=== PATIENT | female | born 1935 | race Caucasian/White ===

== ENCOUNTER 2017-08-05 19:32 | Emergency (ER) | payer MEDICARE, OTHER ==
[2017-08-05 20:14] LABS: Bilirubin Negative (Negative); Blood, Urine Negative (Negative); Glucose, Urine (Dipstick) Negative (Negative); Ketone, Urine Negative (Negative); Nitrite Negative (Negative); Protein, Urine (Dipstick) Negative (Neg-Trace)
[2017-08-05 20:16] LABS: Bacteria/HPF 1+ HPF (None Seen); Hyaline Casts/LPF 4-6 HYALINE CAST LPF (0-3 Hyaline)
[2017-08-05 20:29] LABS: RBC/HPF 0-3 HPF (0-3)
[2017-08-05] MEDS ORDERED: Cephalexin 250 MG CAP ONE (21:24)
== END 2017-08-05 21:30 | disposition home or self-care (01) ==
LOC: ERS 19:32
DX: N39.0 Urinary tract infection, site not specified (principal); E03.9 Hypothyroidism, unspecified; I10 Essential (primary) hypertension; Z79.899 Other long term (current) drug therapy; Z79.82 Long term (current) use of aspirin
CPT/HCPCS: 81003; 81015; 87077; 87086; 87186; 99283

== ENCOUNTER 2017-08-13 09:36 | Emergency (ER) | payer MEDICARE, OTHER ==
[2017-08-13 10:19] LABS: Bilirubin Negative (Negative); Blood, Urine Negative (Negative); Glucose, Urine (Dipstick) Negative (Negative); Ketone, Urine Negative (Negative); Nitrite Negative (Negative); Protein, Urine (Dipstick) Negative (Neg-Trace)
[2017-08-13] MEDS ORDERED: Dicyclomine 20 MG TAB ONE (12:29)
[2017-08-13] MEDS ORDERED: Ondansetron ODT 4 MG TAB ONE (12:29)
[2017-08-13 12:41] LABS: #Eosinphils 0.1 thou/uL (0.0-0.7); #Lymphocytes 3.3 thou/uL (1.20-3.40); #Monocytes 0.8 thou/uL (0.11-0.59); #Neutrophils 4.3 thou/uL (1.40-6.50); %Basophils 0.3 % (0.0-1.0); %Eosinophils 0.8 % (0.0-10.0); %Lymphocytes 38.8 % (21.0-51.0); %Monocytes 9.3 % (0.0-10.0); Hematocrit 37.9 % (36.0-47.0); Mean Platelet Volume 8.3 fL (7.4-10.4); Red Blood Cell (RBC) Count 4.31 mill/uL (4.20-5.40); White Blood Cell (WBC) Count 8.5 thou/uL (4.8-10.8)
[2017-08-13 13:03] LABS: ALT (SGPT) 12 U/L (8-55); AST (SGOT) 18 U/L (5-34); Alkaline Phosphatase 68 U/L (40-150); Anion Gap 10 mmol/L (10-20); BUN (Urea Nitrogen) 21 mg/dL (9.8-20.1); Bilirubin, Total 0.8 mg/dL (0.2-1.2); Calc. Creatinine Clearance 0 mL/min (70-130); Calcium 8.9 mg/dL (7.8-10.44); Carbon Dioxide 29 mmol/L (23-31); Chloride 104 mmol/L (98-107); Estimated GFR-MDRD 39; Globulin 3.2 g/dL (2.4-3.5); Lipase 16 U/L (8-78)
--- NOTE | 2017-08-13 14:12 | CT ---
CT ABDOMEN AND PELVIS WITH IV CONTRAST: Date: 08/13/17 HISTORY: Diarrhea with onset of symptoms 1 day ago. Unresolved UTI symptoms. Patient has bilateral flank pain. Patient now has diffuse abdominal pain that began yesterday. COMPARISON: 08/04/16. FINDINGS: Post cholecystectomy changes are again present. There is suggestion of mild scarring involving the superior pole of each kidney. There is minimal bibasilar atelectasis. A small hiatal hernia is again present. The liver has a normal CT appearance, but the most superior aspect dome of the liver is excluded from view. The spleen, pancreas, and bilateral adrenal glands demonstrate a normal CT appearance. Urinary bladder is decompressed. There is evidence of hysterectomy. A 2.9 cm low density structure seen in the left adnexa which does demonstrate fluid attenuation may r epresent a small left ovarian cyst. The appendix is visualized and normal in caliber. Vascular calcifications are present in the abdominal aorta and iliac arteries. No dilated loops of bowel are seen. There is colonic diverticulosis. There has been no other interval change when compared to the prior e xam. IMPRESSION: 1. No acute findings in the abdomen or pelvis. 2. Small hiatal hernia. 3. Cholecystectomy and hysterectomy. 4. Small left ovarian cyst. POS: [facility]
== END 2017-08-13 14:48 | disposition home or self-care (01) ==
LOC: ERS 09:36
DX: R10.9 Unspecified abdominal pain (principal); E03.9 Hypothyroidism, unspecified; I10 Essential (primary) hypertension
CPT/HCPCS: 36415; 74177; 80053; 81003; 83690; 85025; 87086; Q0162

== ENCOUNTER 2017-08-28 12:58 | Emergency (ER) | payer MEDICARE, OTHER ==
[2017-08-28] MEDS ORDERED: Nitroglycerin 0.4 MG TAB (25 Tab Bottle) ONE (13:33)
[2017-08-28] MEDS ORDERED: Nitroglycerin 2% Ointment 1 INCH/1 GM Packet ONE (13:33)
[2017-08-28] MEDS ORDERED: Acetaminophen 500 MG TAB ONE (13:33)
[2017-08-28 13:44] LABS: #Basophils 0.1 thou/uL (0.0-0.2); #Eosinphils 0.1 thou/uL (0.0-0.7); #Lymphocytes 2.6 thou/uL (1.20-3.40); #Monocytes 0.6 thou/uL (0.11-0.59); %Basophils 1.2 % (0.0-1.0); %Eosinophils 1.9 % (0.0-10.0); %Lymphocytes 35.4 % (21.0-51.0); %Monocytes 8.4 % (0.0-10.0); Hematocrit 38.4 % (36.0-47.0); Mean Platelet Volume 8.4 fL (7.4-10.4); Red Blood Cell (RBC) Count 4.39 mill/uL (4.20-5.40); White Blood Cell (WBC) Count 7.5 thou/uL (4.8-10.8)
--- NOTE | 2017-08-28 13:51 | RAD ---
CHEST ONE VIEW: History: Dyspnea. Comparison: 05-16-15 FINDINGS: Cardiac silhouette is magnified by projection. Pulmonary vasculature is upper limits of normal and ac centuated by shallow inspiration. Mediastinum is midline. There is no lobar consolidation or evidence of pneumothorax. cat breeder leads overlie the chest. IMPRESSION: No active cardiopulmonary abnormalities are demonstrated. POS: [facility]
[2017-08-28 14:16] LABS: ALT (SGPT) 13 U/L (8-55); AST (SGOT) 20 U/L (5-34); Alkaline Phosphatase 67 U/L (40-150); Anion Gap 12 mmol/L (10-20); BUN (Urea Nitrogen) 23 mg/dL (9.8-20.1); Bilirubin, Total 0.3 mg/dL (0.2-1.2); CK (CPK) 63 U/L (29-168); Calc. Creatinine Clearance 0 mL/min (70-130); Calcium 8.6 mg/dL (7.8-10.44); Carbon Dioxide 27 mmol/L (23-31); Chloride 105 mmol/L (98-107); Estimated GFR-MDRD 40; Globulin 2.8 g/dL (2.4-3.5); Protein, Total 6.8 g/dL (6.0-8.3)
[2017-08-28 14:20] LABS: Troponin I Less than 0.010 ng/mL (< 0.028)
== END 2017-08-28 15:13 | disposition home or self-care (01) ==
LOC: ERS 12:58
DX: I16.0 Hypertensive urgency (principal); E03.9 Hypothyroidism, unspecified; I10 Essential (primary) hypertension; Z79.02 Long term (current) use of antithrombotics/antiplatelets; Z79.899 Other long term (current) drug therapy
CPT/HCPCS: 71010; 80053; 82553; 83880; 84484; 85025; 93005

== ENCOUNTER 2018-02-16 15:31 | Observation (INO) | payer MEDICARE, OTHER ==
[2018-02-16 15:55] LABS: #Eosinphils 0.2 thou/uL (0.0-0.7); #Lymphocytes 2.2 thou/uL (1.20-3.40); #Neutrophils 8.7 thou/uL (1.40-6.50); %Basophils 0.3 % (0.0-1.0); %Eosinophils 1.3 % (0.0-10.0); %Lymphocytes 18.1 % (21.0-51.0); %Monocytes 8.2 % (0.0-10.0); %Neutrophils 72.1 % (42.0-75.0); Hemoglobin 12.6 g/dL (12.0-16.0); Mean Corpuscular HGB CONC 32.3 g/dL (32.0-36.0); Mean Corpuscular Hemoglobin 26.9 pg (27.0-31.0); Mean Corpuscular Volume 83.2 fl (81.0-99.0); Mean Platelet Volume 8.4 fL (7.4-10.4); Platelet Count 219 thou/uL (130-400); RBC Distribution Width 14.8 % (11.5-14.5)
[2018-02-16 16:19] LABS: ALT (SGPT) 10 U/L (8-55); AST (SGOT) 20 U/L (5-34); Albumin 4.1 g/dL (3.4-4.8); Alkaline Phosphatase 77 U/L (40-150); Anion Gap 16 mmol/L (10-20); BUN (Urea Nitrogen) 18 mg/dL (9.8-20.1); Bilirubin, Total 0.7 mg/dL (0.2-1.2); CK (CPK) 65 U/L (29-168); Calc. Creatinine Clearance 0 mL/min (70-130); Carbon Dioxide 25 mmol/L (23-31); Chloride 101 mmol/L (98-107); Estimated GFR-MDRD 32; Globulin 3.5 g/dL (2.4-3.5); Glucose 129 mg/dL (83-110); Potassium 4.2 mmol/L (3.5-5.1); Protein, Total 7.6 g/dL (6.0-8.3); Sodium 138 mmol/L (136-145)
[2018-02-16 16:21] LABS: CKMB 1.5 ng/mL (0-6.6); Troponin I Less than 0.010 ng/mL (< 0.028)
[2018-02-16] MEDS ORDERED: Ondansetron ODT 4 MG TAB ONE ×4 (16:21→20:00)
--- NOTE | 2018-02-16 16:28 | RAD ---
FRONTAL RADIOGRAPH CHEST 02/16/18 COMPARISON: 08/28/17 HISTORY: Generalized weakness with nausea and vomiting. FINDINGS/IMPRESSION: Heart and mediastinal contours are grossly unchanged with no pneumothorax, pleural fluid, lobar conso lidation or alveolar edema. There is multilevel disc space narrowing and right lateral osteophyte for mation. IMPRESSION: No acute findings. POS: [facility]
[2018-02-16] MEDS ORDERED: ISOVUE-370 76%-LOCM 1 ML ONE (16:44)
[2018-02-16 17:17] LABS: Bilirubin Negative (Negative); Blood, Urine Negative (Negative); Clarity CLEAR (Clear); Glucose, Urine (Dipstick) Negative (Negative); Leukocyte Negative (Negative); Nitrite Negative (Negative); Protein, Urine (Dipstick) Negative (Neg-Trace); Specific Gravity, Urine 1.014 (1.002-1.036); pH, Urine 7.5 (5.0-9.0)
--- NOTE | 2018-02-16 18:26 | CT ---
CT ABDOMEN AND PELVIS 02/16/18 COMPARISON: 08/13/17. HISTORY: Weakness, nausea, vomiting and pain. TECHNIQUE: Serial axial CT imaging at 5 mm intervals from the lung bases through the pubic symphysis with IV con trast. Coronal reformatted imaging obtained. FINDINGS: Imaged lung bases are unremarkable. No free intraperitoneal air or fluid. The gallbladder is surgically absent. Liver and spleen are unremarkable. There is fatty atrophy of th e pancreas. Adrenal glands are unremarkable. Diffuse cortical thinning is seen involving bilateral ki dneys, stable. The uterus is surgically absent. There is mild sigmoid diverticulosis with no evidence for diverticul itis. No evidence for bowel inflammatory change or obstruction. There is a small to moderate sized sliding hiatal hernia, stable. There is a low density lesion in the left hemipelvis suggesting a cystic left ovarian lesion. This lesion measures 3.4 cm, enlarged since the 08/13/17 exam at which time it measur ed 2.9 cm. There is degenerative change involving facet joints of the lower lumbar spine and involving bilateral hips. No worrisome lytic or blastic bone lesion identified. IMPRESSION: 1. No evidence for free intraperitoneal air or bowel obstruction. 2. Low density lesion in the left hemipelvis suggesting a cystic left ovarian lesion, increased in size since the prior exam. Recommend followup REEL HOOKER consultation and nonemergent followup pelvic ult rasound as a neoplastic lesion within the left ovary cannot be excluded. Code T POS: [facility]
--- NOTE | 2018-02-16 18:28 | CT ---
HEAD CT WITHOUT CONTRAST 02/16/18 COMPARISON: 12/25/16 HISTORY: Generalized weakness with nausea and vomiting. TECHNIQUE: Serial axial CT imaging at 5 mm intervals from vertex through skull base without contrast. FINDINGS: Imaged paranasal sinuses/mastoid air cells are well aerated. There is no displaced calvarial fracture , intracranial hemorrhage, midline shift, or mass effect. IMPRESSION: No acute findings. POS: [facility]
[2018-02-16 22:15] VITALS: BMI 38.7
[2018-02-16] MEDS ORDERED: Ondansetron HCl/PF 4 MG/2 ML Vial IVP PRN ×2 (22:22→22:30)
[2018-02-16] MEDS ORDERED: Ondansetron ODT 4 MG TAB SL PRN (22:22)
[2018-02-16] MEDS ORDERED: Lactated Ringer's 1,000 ML IV SCH (22:22)
[2018-02-16] MEDS ORDERED: Loperamide HCl 2 MG CAP PO PRN (22:30)
[2018-02-16] MEDS ORDERED: Acetaminophen 325 MG TAB PO PRN (22:30)
[2018-02-16] MEDS ORDERED: Mag-Al 1200 mg/1200 mg/30 ML UDCUP PO PRN (22:30)
[2018-02-16] MEDS ORDERED: HYDROcodone/Acetaminophen 5/325 mg Tablet PO PRN (22:30)
[2018-02-16] MEDS ORDERED: Senokot 8.6 MG TAB PO PRN (22:30)
[2018-02-16] MEDS ORDERED: ALPRAZolam 1 MG TAB PO PRN (22:30)
[2018-02-16] MEDS ORDERED: Milk Of Magnesia 30 ML UDCUP PO PRN (22:30)
[2018-02-16] MEDS ORDERED: Ondansetron ODT 4 MG TAB PO PRN (22:30)
[2018-02-16] MEDS ORDERED: Zolpidem Tartrate 5 MG TAB PO PRN (22:30)
--- NOTE | 2018-02-17 00:12 | HP ---
PRIMARY CARE PHYSICIAN: SALLY Grant/Len De La Garza MD REASON FOR ADMISSION: Nausea, vomiting, diarrhea, weakness. HISTORY OF PRESENT ILLNESS: An 82-year-old female who has underlying history of hypertension, coronary artery disease, and hypothyroidism, who came to emergency room with complaint of generalized weakness. The patient had one time nausea and vomiting today and she had diarrhea one time at home. The patient was feeling chills and weakness for about 1 week. She had multiple falls for last 2 weeks, she was having diffuse abdominal discomfort, especially in the lower part with crampy in nature, about 8/10 in intensity. She did not have any fever. She denies any hematochezia, melena, or hematemesis. This patient reports that for last week, she was having edema in her lower extremity and that is why she was started on Lasix and today all symptoms gotten worse. REVIEW OF SYSTEMS: The following complete review of systems was negative, unless otherwise mentioned in the HPI or below: Constitutional: Weight loss or gain, ability to conduct usual activities. Skin: Rash, itching. Eyes: Double vision, pain. ENT/Mouth: Nose bleeding, neck stiffness, pain, tenderness. Cardiovascular: Palpitations, dyspnea on exertion, orthopnea. Respiratory: Shortness of breath, wheezing, cough, hemoptysis, fever or night sweats. Gastrointestinal: Poor appetite, abdominal pain, heartburn, nausea, vomiting, constipation, or diarrhea. Genitourinary: Urgency, frequency, dysuria, nocturia. Musculoskeletal: Pain, swelling. Neurologic/Psychiatric: Anxiety, depression. Allergy/Immunologic: Skin rash, bleeding tendency. PAST MEDICAL HISTORY: Hypertension, coronary artery disease, hypothyroidism, senile dementia, dyslipidemia, gastroesophageal reflux disease. PAST SURGICAL HISTORY: Cholecystectomy, back surgery, cardiac catheterization with angiography, carotid endarterectomy, hysterectomy. PAST PSYCHIATRIC HISTORY: Anxiety and depression. SOCIAL HISTORY: Patient lives at home. No history of tobacco, alcohol, or illicit drug abuse. FAMILY HISTORY: Positive for hypertension, cerebrovascular accident to mother and brother had coronary artery disease. ALLERGIES: HYDRALAZINE. CURRENT HOME MEDICATIONS: Xanax 0.25 mg p.o. at bedtime p.r.n., aspirin 81 mg p.o. daily, Plavix 75 mg p.o. daily, Nexium 40 mg p.o. daily, Prozac 20 mg p.o. daily, Lasix 20 mg p.o. daily, Imdur 60 mg p.o. daily, Synthroid 175 mcg p.o. daily, losartan 50 mg p.o. daily, Namenda 10 mg p.o. daily, Zocor 10 mg p.o. at bedtime, VESIcare 10 mg p.o. daily. EMERGENCY ROOM COURSE: Patient has received gentle IV fluid, Zofran 4 mg x2. PHYSICAL EXAMINATION: VITAL SIGNS: On arrival, blood pressure 121/78, pulse 88, respiratory rate 20, temperature 98.0, saturation 99% on room air, weight 100 kilograms. GENERAL: Patient is currently alert, awake, in no obvious acute distress. HEAD: Normocephalic, atraumatic. EYES: Pupils round, reactive to light. Extraocular muscle intact. ENT: Oropharynx within normal limits. Moist mucous membranes. No oral lesion , no pharyngeal erythema, no exudate. NECK: Supple. No JVD, no thyromegaly, no carotid bruit. LUNGS: Clear to auscultation without any rhonchi or rales. CARDIAC: S1, S2 appears regular. No murmur, no gallop, no rub. ABDOMEN: Patient does have diffuse tenderness especially in the lower part, but no peritoneal signs, no guarding, no rigidity, no rebound. BACK: Unremarkable. No CVA tenderness. EXTREMITIES: Upper extremity: Passive movement of all joints are normal. Lower extremities: No edema. Good peripheral pulsation. SKIN: No skin rash. HEMATOLOGICAL: No lymphadenopathy. PSYCHIATRIC: Normal affect. NEUROLOGIC: Nonfocal examination. SIGNIFICANT DIAGNOSTIC AND LABORATORY DATA: EKG showing normal sinus rhythm, sharp, without any acute ischemic changes. CT brain based on my review, no acute intracranial process. Chest x-ray showing no acute cardiopulmonary process. Multilevel disk space narrowing. Abdomen and pelvis CT scan showed a cystic lesion in left lower quadrant, which has slightly increased in size, most likely from ovarian origin. CBC: WBC 12.0, hemoglobin 12.6, platelet 219, 000. BMP: Sodium 138, potassium 4.2, chloride 103, carbon dioxide 25, anion gap 16, BUN 18, creatinine 1.55, glucose 129, calcium 9.0. LFT: AST 20, ALT 10 , alkaline phosphatase 77, albumin 4.1. Cardiac enzymes negative. BNP 134.3, lipase 23. Urinalysis normal. Influenza screen negative. IMPRESSION and PLAN: 1. Generalized weakness, likely related with volume depletion secondary to nausea, vomiting, diarrhea, and diuretic therapy. 2. Dehydration due to problem #1. Will hold lasix today, give gentle fluid. 3. Nausea, vomiting, diarrhea, rule out infection. 4. Abdominal pain, likely due to problem #1, suspecting viral gastroenteritis. 5. Cystic ovarian lesion on the left side. Patient will need pelvic ultrasound. 6. Elevated BNP. We will obtain echocardiography to rule out systolic and diastolic dysfunction. 7. Coronary artery disease. 8. Gastroesophageal reflux disease. 9. Anxiety and depression. 10. Hypothyroidism. 11. Senile dementia. 12. Dyslipidemia. We will resume patient's home medication. 13. Deep venous thrombosis prophylaxis not needed because we are expecting discharge in 24 hours. 14. Gastrointestinal prophylaxis, Protonix 40 mg IV daily. CODE STATUS: Patient is FULL CODE. Patient's granddaughter is surrogate decision maker. Disposition plan based on above-mentioned investigation result. She will need PT, OT, and possible rehab placement. ABDELRAHMAN
[2018-02-17 04:57] LABS: #Lymphocytes 1.2 thou/uL (1.20-3.40); #Monocytes 0.6 thou/uL (0.11-0.59); #Neutrophils 5.5 thou/uL (1.40-6.50); %Basophils 0.1 % (0.0-1.0); %Eosinophils 0.2 % (0.0-10.0); %Lymphocytes 16.3 % (21.0-51.0); %Monocytes 7.9 % (0.0-10.0); %Neutrophils 75.6 % (42.0-75.0); Hemoglobin 11.1 g/dL (12.0-16.0); Mean Corpuscular HGB CONC 32.3 g/dL (32.0-36.0); Mean Corpuscular Hemoglobin 26.9 pg (27.0-31.0); Mean Corpuscular Volume 83.1 fl (81.0-99.0); Mean Platelet Volume 8.4 fL (7.4-10.4); Platelet Count 157 thou/uL (130-400); RBC Distribution Width 14.8 % (11.5-14.5); Red Blood Cell (RBC) Count 4.14 mill/uL (4.20-5.40); White Blood Cell (WBC) Count 7.3 thou/uL (4.8-10.8)
[2018-02-17 05:07] LABS: ALT (SGPT) 9 U/L (8-55); AST (SGOT) 15 U/L (5-34); Albumin 3.5 g/dL (3.4-4.8); Alkaline Phosphatase 62 U/L (40-150); Anion Gap 11 mmol/L (10-20); BUN (Urea Nitrogen) 17 mg/dL (9.8-20.1); Bilirubin, Total 0.5 mg/dL (0.2-1.2); Calc. Creatinine Clearance 51 mL/min (70-130); Calcium 8.2 mg/dL (7.8-10.44); Carbon Dioxide 27 mmol/L (23-31); Chloride 104 mmol/L (98-107); Estimated GFR-MDRD 38; Globulin 2.8 g/dL (2.4-3.5); Glucose 111 mg/dL (83-110); Potassium 3.9 mmol/L (3.5-5.1); Protein, Total 6.3 g/dL (6.0-8.3); Sodium 138 mmol/L (136-145)
[2018-02-17] MEDS ORDERED: Levothyroxine 175 MCG TAB PO SCH (06:00)
[2018-02-17] MEDS ORDERED: Clopidogrel Bisulfate 75 MG TAB PO SCH (09:00)
[2018-02-17] MEDS ORDERED: Pantoprazole 40 MG VIAL IVP SCH (09:00)
[2018-02-17] MEDS ORDERED: TROSPIUM 20 MG TABLET PO SCH (09:00)
[2018-02-17] MEDS ORDERED: Famotidine 20 MG TAB PO SCH (09:00)
[2018-02-17] MEDS ORDERED: FLUoxetine HCl 20 MG CAP PO SCH (09:00)
[2018-02-17] MEDS ORDERED: Losartan 25 MG TAB PO SCH (09:00)
--- NOTE | 2018-02-17 10:33 | ULT ---
PELVIC ULTRASOUND: Date: 02/17/18 HISTORY: Follow-up for evaluation of a cystic lesion in the left adnexa noted on recent CT. COMPARISON: CT examination done yesterday. FINDINGS: Real-time images of the pelvis were obtained transabdominally. These confirm the presence of a 2.9 cm left ovarian cyst. The uterus and right ovary have been removed. DOPPLER EVALUATION WITH SPECTRAL ANALYSIS: Normal flow shown to the left ovary. IMPRESSION: 2.9 cm left ovarian cyst. No suspicious features of this cyst. POS: [facility]
[2018-02-17] MEDS ORDERED: Loperamide HCl 2 MG CAP PO SCH (12:00)
--- NOTE | 2018-02-17 15:49 | DIS ---
DATE OF ADMISSION: 02/16/2018 DATE OF DISCHARGE: 02/17/2018 PRIMARY CARE PROVIDER: Len De La Garza M.D. DISCHARGE DIAGNOSES: 1. Gastroenteritis. 2. Generalized weakness. 3. Acute on chronic renal insufficiency. 4. Ovarian cyst. CONDITION OF PATIENT ON THE DAY OF DISCHARGE: Stable. I assessed Ms. Velazquez on the day of discharge. She reports the diarrhea has improved. Vital signs are stable. S1 and S2 are heard, regular. Calvin gs are clear to auscultation bilaterally. DISCHARGE MEDICATIONS: In addition to her preadmission home medications as dictated by Dr. Stella chapa history and physical note from 02/16/2018, she is being discharged on Imodium p.r.n. HOSPITAL COURSE: Ms. Mtz is a pleasant 82-year-old lady who was admitted to [facility] for generalized weakness, nausea, vomiting, and diarrhea, most likely secondary to viral gastroenteritis. Clostridium difficile antigen and toxin tests were negative on stool sample. Camp ylobacter antigen assay as well as Shiga toxin test were negative as well. Rapid parasite screen was also negative for Giardia or cryptosporidium. Preliminary urine culture did not show any growth at 24 hours. The patient improved with intravenous fluids. Her leukocytosis resolved. She also had acute on [address] [place] renal insufficiency, with a creatinine of 1.55 on the day of admission. It decreased to 1.33 on the day of discharge. She had CT scan of the abdomen and pelvis at the time of admission, which did not show any evidence f or free intraperitoneal air or bowel obstruction. She had low density lesion in the left hemipelvis suggesting a cystic left ovarian lesion, increased in size since the previous exam. [facility], which showed 2.9 cm left ovarian cyst. There were no suspiciou s features of the cyst. She is advised to follow up with her primary care provider as well as with [facility] for the same. She also had a 2D echocardiogram, report is pending at the time of discharge. She is advised to foll ow up with her primary care provider for a 2D echocardiogram report. Many thanks for allowing me to participate in your patient's care. Please feel free to contact me wi th any questions or concerns. DISCHARGE DESTINATION: Home.
[2018-02-17 18:35] VITALS: BP 108/55; TEMP 98.2
[2018-02-17] MEDS ORDERED: Simvastatin 20 MG TAB PO SCH (21:00)
== END 2018-02-17 19:51 | disposition home or self-care (01) ==
LOC: ERS 15:31 → 2SW 21:00
PROVIDERS: ADMIT Internal Medicine; ATTEND Internal Medicine
DX: K52.9 Noninfective gastroenteritis and colitis, unspecified (principal); I12.9 Hypertensive chronic kidney disease with stage 1 through stage 4 chronic kidney disease, or unspecified chronic kidney disease; N18.9 Chronic kidney disease, unspecified; I25.10 Atherosclerotic heart disease of native coronary artery without angina pectoris; K21.9 Gastro-esophageal reflux disease without esophagitis; N83.202 Unspecified ovarian cyst, left side; F41.8 Other specified anxiety disorders; E03.9 Hypothyroidism, unspecified; F03.90 Unspecified dementia, unspecified severity, without behavioral disturbance, psychotic disturbance, mood disturbance, and anxiety; E78.5 Hyperlipidemia, unspecified; Z79.82 Long term (current) use of aspirin; Z79.02 Long term (current) use of antithrombotics/antiplatelets; Z79.899 Other long term (current) drug therapy
CPT/HCPCS: 51701; 70450; 71045; 74177; 76856; 80053 ×2; 81003; 82550; 82553; 83690; 83880; 84484; 85025 ×2; 87045; 87046; 87086; 87324; 87328; 87329; 87449 ×2; 87804 ×2; 87899 ×2; 93005; 93306; 94760; 96361 ×3; 96374; 97116; 97139 ×2; 99285; G0378; G8978; G8979; G8980; 36415; 87081; 96360; A4353; C9113; Q0162

== ENCOUNTER 2018-03-07 13:51 | Emergency (ER) | payer MEDICARE, OTHER ==
[2018-03-07 14:25] LABS: #Lymphocytes 1.6 thou/uL (1.20-3.40); #Monocytes 2.4 thou/uL (0.11-0.59); #Neutrophils 14.2 thou/uL (1.40-6.50); %Basophils 0.1 % (0.0-1.0); %Eosinophils 0.1 % (0.0-10.0); %Lymphocytes 8.7 % (21.0-51.0); %Monocytes 13.1 % (0.0-10.0); %Neutrophils 77.9 % (42.0-75.0); Hemoglobin 11.5 g/dL (12.0-16.0); Mean Corpuscular HGB CONC 31.4 g/dL (32.0-36.0); Mean Corpuscular Hemoglobin 26.6 pg (27.0-31.0); Mean Corpuscular Volume 84.6 fL (78.0-98.0); Mean Platelet Volume 8.8 fL (7.4-10.4); Platelet Count 170 thou/uL (130-400); RBC Distribution Width 14.4 % (11.5-14.5); Red Blood Cell (RBC) Count 4.35 mill/uL (4.20-5.40); White Blood Cell (WBC) Count 18.2 thou/uL (4.8-10.8)
[2018-03-07 14:43] LABS: Bilirubin Negative (Negative); Blood, Urine Small (Negative); Clarity TURBID (Clear); Glucose, Urine (Dipstick) Negative (Negative); Leukocyte Large (Negative); Nitrite Positive (Negative); Protein, Urine (Dipstick) 100 mg/dL (Neg-Trace); Specific Gravity, Urine 1.014 (1.002-1.036)
[2018-03-07 14:45] LABS: Bacteria/HPF 4+ HPF (None Seen); Hyaline Casts/LPF 4-6 HYALINE CAST LPF (0-3 Hyaline); Pathc Cast-AUWi Flag 1.59 (0-2.49); Squamous Epithelial 0-3 HPF (0-3)
[2018-03-07 14:46] LABS: ALT (SGPT) 11 U/L (8-55); AST (SGOT) 15 U/L (5-34); Albumin 3.6 g/dL (3.4-4.8); Alkaline Phosphatase 68 U/L (40-150); Anion Gap 16 mmol/L (10-20); BUN (Urea Nitrogen) 23 mg/dL (9.8-20.1); Bilirubin, Total 0.8 mg/dL (0.2-1.2); Calc. Creatinine Clearance 0 mL/min (70-130); Calcium 8.3 mg/dL (7.8-10.44); Carbon Dioxide 18 mmol/L (23-31); Chloride 104 mmol/L (98-107); Estimated GFR-MDRD 27; Glucose 145 mg/dL (83-110); Lipase 23 U/L (8-78); Potassium 4.5 mmol/L (3.5-5.1); Protein, Total 6.6 g/dL (6.0-8.3); Sodium 133 mmol/L (136-145)
[2018-03-07 14:50] LABS: CKMB 0.5 ng/mL (0-6.6); Troponin I Less than 0.010 ng/mL (< 0.028)
[2018-03-07] MEDS ORDERED: cefTRIAXone\\ROCEPHIN 1 GM VIAL ONE (15:03)
--- NOTE | 2018-03-09 14:25 | EKG ---
Test Reason : Blood Pressure : / mmHG Vent. Rate : 094 BPM Atrial Rate : 094 BPM P-R Int : 116 ms QRS Dur : 084 ms QT Int : 370 ms P-R-T Axes : 029 -01 056 degrees QTc Int : 462 ms Normal sinus rhythm with sinus arrhythmia Anteroseptal infarct , age undetermined Abnormal ECG No change from 02/16/2018 Confirmed by FERNANDO BRANHAM ([id number]), editor managing newspaper REMY NIETO ([id number]) on 03/09/2018 2:25:26 PM Referred By: Confirmed By:FERNANDO BRANHAM
== END 2018-03-07 15:52 | disposition home or self-care (01) ==
LOC: ERS 13:51
DX: E86.0 Dehydration (principal); N39.0 Urinary tract infection, site not specified; E03.9 Hypothyroidism, unspecified; I10 Essential (primary) hypertension; F41.9 Anxiety disorder, unspecified; F32.9 Major depressive disorder, single episode, unspecified; Z79.899 Other long term (current) drug therapy
CPT/HCPCS: 36415; 51701; 80053; 81003; 81015; 82553; 83690; 84484; 85025; 87077; 87086; 87186; 93005; 96361; 96365; A4353; J0696

== ENCOUNTER 2019-03-05 16:09 | Emergency (ER) | payer MEDICARE, OTHER ==
[2019-03-05 17:27] LABS: #Eosinphils 0.1 thou/uL (0.0-0.7); #Lymphocytes 3.4 thou/uL (1.20-3.40); #Monocytes 0.7 thou/uL (0.11-0.59); #Neutrophils 4.5 thou/uL (1.40-6.50); %Eosinophils 1.3 % (0.0-10.0); %Lymphocytes 38.8 % (21.0-51.0); %Neutrophils 51.8 % (42.0-75.0); Hemoglobin 11.9 g/dL (12.0-16.0); Mean Corpuscular HGB CONC 31.1 g/dL (32.0-36.0); Mean Corpuscular Hemoglobin 26.1 pg (27.0-31.0); Mean Corpuscular Volume 83.7 fL (78.0-98.0); Mean Platelet Volume 8.8 fL (7.4-10.4); Platelet Count 199 thou/uL (130-400); RBC Distribution Width 13.7 % (11.5-14.5); Red Blood Cell (RBC) Count 4.55 mill/uL (4.20-5.40); White Blood Cell (WBC) Count 8.7 thou/uL (4.8-10.8)
[2019-03-05 17:54] LABS: ALT (SGPT) 7 U/L (8-55); AST (SGOT) 13 U/L (5-34); Albumin 3.7 g/dL (3.4-4.8); Alkaline Phosphatase 66 U/L (40-150); Anion Gap 14 mmol/L (10-20); BUN (Urea Nitrogen) 19 mg/dL (9.8-20.1); Bilirubin, Total 0.3 mg/dL (0.2-1.2); Calc. Creatinine Clearance 0 mL/min (70-130); Calcium 8.5 mg/dL (7.8-10.44); Carbon Dioxide 24 mmol/L (23-31); Chloride 102 mmol/L (98-107); Estimated GFR-MDRD 33; Glucose 107 mg/dL (83-110); Protein, Total 6.7 g/dL (6.0-8.3); Sodium 135 mmol/L (136-145)
--- NOTE | 2019-03-05 18:11 | CT ---
EXAM: CT brain without contrast HISTORY: Weakness and dizziness COMPARISON: 02/16/2018 TECHNIQUE: Multiple contiguous axial images were obtained and a CT of the brain without contrast. FINDINGS: There are scattered hypodensities in the subcortical and periventricular white matter consi stent with small vessel ischemic disease. There is no evidence of hydrocephalus, intracranial hemorrhage, or extra-axial fluid collection. The calvarium and overlying soft tissues are unremarkable. The visualized paranasal sinuses and masto id air cells are well aerated. IMPRESSION: No evidence of acute intracranial abnormality
[2019-03-05 19:25] LABS: Bacteria/HPF 2+ HPF (None Seen); Bilirubin Negative (Negative); Blood, Urine Negative (Negative); Clarity Clear (Clear); Glucose, Urine (Dipstick) Normal (Negative); Leukocyte 250 Leu/uL (Negative); Nitrite Negative (Negative); Protein, Urine (Dipstick) Negative (Neg-Trace); RBC/HPF 0-3 HPF (0-3); Urobilinogen Normal mg/dL (Less than 2)
[2019-03-05] MEDS ORDERED: cefTRIAXone\\ROCEPHIN 1 GM VIAL ONE (19:35)
[2019-03-05] MEDS ORDERED: Meclizine HCl 25 MG TAB ONE (19:35)
--- NOTE | 2019-03-08 22:10 | EKG ---
Test Reason : Blood Pressure : / mmHG Vent. Rate : 086 BPM Atrial Rate : 086 BPM P-R Int : 102 ms QRS Dur : 086 ms QT Int : 390 ms P-R-T Axes : -06 -06 017 degrees QTc Int : 466 ms Sinus rhythm with short NC Anteroseptal infarct , age undetermined Abnormal ECG Confirmed by KIM BRAUN ([id number]), city editor GREG PARRA ([id number]) on 03/08/2019 10:09:17 PM Referred By: Confirmed By:KIM BRAUN
== END 2019-03-05 22:50 | disposition home or self-care (01) ==
LOC: ERS 16:09
DX: N39.0 Urinary tract infection, site not specified (principal); H81.10 Benign paroxysmal vertigo, unspecified ear; E03.9 Hypothyroidism, unspecified; I10 Essential (primary) hypertension; F41.9 Anxiety disorder, unspecified; F32.9 Major depressive disorder, single episode, unspecified; Z79.899 Other long term (current) drug therapy
CPT/HCPCS: 36415; 70450; 80053; 81003; 81015; 84484; 85025; 93005; 96365; 96366; J0696; J8597

== ENCOUNTER 2019-05-30 09:49 | Outpatient (CLI) | payer MEDICARE, OTHER ==
[2019-05-30 11:26] LABS: #Basophils 0.1 thou/uL (0.0-0.2); #Eosinphils 0.2 thou/uL (0.0-0.7); #Lymphocytes 2.7 thou/uL (1.20-3.40); #Monocytes 0.6 thou/uL (0.11-0.59); #Neutrophils 2.8 thou/uL (1.40-6.50); %Basophils 1.5 % (0.0-1.0); %Eosinophils 3.3 % (0.0-10.0); %Monocytes 10.1 % (0.0-10.0); %Neutrophils 43.2 % (42.0-75.0); Mean Corpuscular HGB CONC 32.7 g/dL (32.0-36.0); Mean Corpuscular Hemoglobin 26.9 pg (27.0-31.0); Mean Corpuscular Volume 82.1 fL (78.0-98.0); Mean Platelet Volume 9.4 fL (7.4-10.4); Platelet Count 171 thou/uL (130-400); RBC Distribution Width 14.5 % (11.5-14.5); Red Blood Cell (RBC) Count 4.46 mill/uL (4.20-5.40); White Blood Cell (WBC) Count 6.4 thou/uL (4.8-10.8)
[2019-05-30 11:29] LABS: INR-International Normal Ratio 1.1; Prothrombin Time 13.9 SEC (12.0-14.7)
[2019-05-30 11:43] LABS: ALT (SGPT) 10 U/L (8-55); AST (SGOT) 15 U/L (5-34); Albumin 3.8 g/dL (3.4-4.8); Alkaline Phosphatase 71 U/L (40-110); Anion Gap 14 mmol/L (10-20); BUN (Urea Nitrogen) 19 mg/dL (9.8-20.1); Bilirubin, Total 0.3 mg/dL (0.2-1.2); Calc. Creatinine Clearance 0 mL/min (70-130); Calcium 9.2 mg/dL (7.8-10.44); Carbon Dioxide 25 mmol/L (23-31); Chloride 105 mmol/L (98-107); Estimated GFR-MDRD 37; Globulin 2.7 g/dL (2.4-3.5); Glucose 105 mg/dL (83-110); Potassium 5.2 mmol/L (3.5-5.1); Protein, Total 6.5 g/dL (6.0-8.3); Sodium 139 mmol/L (136-145)
== END 2019-05-30 09:50 | disposition home or self-care (01) ==
LOC: LABBT 09:49
PROVIDERS: ATTEND Internal Medicine Cardiovascular Disease
DX: Z01.812 Encounter for preprocedural laboratory examination (principal)
CPT/HCPCS: 80053; 85025; 85610; 85730

== ENCOUNTER 2019-06-02 05:35 | Day surgery (SDC) | payer MEDICARE, OTHER ==
[2019-05-30 10:12] VITALS: BMI 35.4
[2019-06-02] MEDS ORDERED: Lidocaine 1% (PF) 30 ML VIAL ONE (07:52)
[2019-06-02] MEDS ORDERED: Verapamil 5 MG/2 ML VIAL ONE (08:32)
[2019-06-02] MEDS ORDERED: Heparin 10,000 UNITS/1 ML VIAL ONE (08:33)
[2019-06-02] MEDS ORDERED: Nitroglycerin 100MG/250ML BOT 250 ML ONE (08:33)
[2019-06-02] MEDS ORDERED: Midazolam HCl 2 mg/2 ml Vial ONE (09:05)
[2019-06-02] MEDS ORDERED: Atropine Sulfate 1 mg/10 ml Syringe ONE (09:43)
[2019-06-02] MEDS ORDERED: Atropine Sulfate 1 mg/1 ml Vial ONE (09:43)
[2019-06-02] MEDS ORDERED: Iopamidol 370 76% 100 ML VIAL ONE (11:24)
[2019-06-02] MEDS ORDERED: Acetaminophen/Codeine 30-300mg Tablet ONE (12:18)
--- NOTE | 2019-06-03 03:31 | DIS ---
DATE OF ADMISSION: 06/02/2019 DATE OF DISCHARGE: 06/02/2019 DATE OF PROCEDURE: 06/02/2019. HOSPITAL COURSE: The patient was admitted as an outpatient to undergo elective angioplasty and probable stent placement to the left anterior descending and also to left circumflex. She had recently undergone cardiac catheterization, was found to have 90% stenosis in the left anterior descending artery and left circumflex. She also had an occluded obtuse marginal branch and left circumflex. She had a normal right coronary artery, and had a normal left ventricular systolic function. She was admitted today to undergo the procedure. She was taken to the cardiac earthmoving labou[facility], where she underwent the procedure today, where she underwent a cardiac catheterization only looking at the left-sided vessels. No left ventriculogram was performed and no right coronary injection was performed. These were found to be normal in her last cardiac catheterization last week. At this time, she was taken to the lab without any difficulties or complication. She underwent angioplasty and stent placement to the left anterior descending artery. Then, the attention was directed toward the left circumflex, where she underwent again an angioplasty and stent placement to the distal left circumflex and also had angioplasty to the proximal right coronary artery with another stent placement. The left anterior descending artery stent was a 2.5 x 16 mm synergy stent, which is drug coated up to 2.5 mm in diameter without any evidence of residual stenosis. The left circumflex also was a 2.5 x 16 mm synergy stent in the distal left circumflex, which also was dilated up to approximately 2.7 mm in diameter with no evidence of residual stenosis. In the proximal left circumflex, underwent angioplasty and stent placement with a 3.0 x 16 mm again synergy stent, which was post dilated up to 3.1 mm in diameter. She tolerated the procedure well. There were no difficulties or complications encountered. She was given Brilinta at the time of the stent placement. She also received heparin during the procedure and the HCT was found to be adequate over 250. This was done to a radial approach and if she remains stable, will be discharged later today. DISCHARGE MEDICATIONS: Include; 1. Brilinta 90 mg b.i.d. 2. Aspirin 81 mg a day. 3. Alprazolam 0.25 mg q.p.m. 4. Nexium 40 mg daily. 5. Fluoxetine 40 mg a day. 6. Imdur 60 mg a day. 7. Levothyroxine 225 mcg, she is taking 200 mcg daily. 8. Losartan 50 mg, she takes half a tablet daily. 9. Namenda 10 mg daily. 10. Zocor 10 mg daily. 11. She takes VESIcare 10 mg q.p.m. or daily. FOLLOWUP: Her followup will be with me in the next 2 to 4 weeks in the office. She will continue her routine followups with her primary care physician. DIAGNOSES: Her other diagnoses include hypothyroidism, hypertension, dyslipidemia, chronic kidney disease, history of transient ischemic attacks, type 2 diabetes, and dementia. If she remained stable over the next few hours, she will be discharged home later today. Job ID: [id number]
--- NOTE | 2019-06-04 19:49 | EKG ---
Test Reason : POST STENT Blood Pressure : / mmHG Vent. Rate : 052 BPM Atrial Rate : 052 BPM P-R Int : 104 ms QRS Dur : 084 ms QT Int : 488 ms P-R-T Axes : 014 015 037 degrees QTc Int : 453 ms Sinus bradycardia with short OH Otherwise normal ECG When compared with ECG of 05-MAR-2019 16:20, Vent. rate has decreased BY 34 BPM Criteria for Anteroseptal infarct are no longer Present Nonspecific T wave abnormality no longer evident in Anterior leads Confirmed by RYANN GRIER, DR. Rankin ([id number]) on 06/04/2019 7:49:28 PM Referred By: CARLENE Confirmed By:DR. Massiel GARZON MD
== END 2019-06-02 14:45 | disposition home or self-care (01) ==
LOC: CCL 05:35
PROVIDERS: ATTEND Internal Medicine Cardiovascular Disease
PROC: 4A023N7 Measurement of Cardiac Sampling and Pressure, Left Heart, Percutaneous Approach (ICD-10-PCS; principal; 2019-06-02)
PROC: B2111ZZ Fluoroscopy of Multiple Coronary Arteries using Low Osmolar Contrast (ICD-10-PCS; 2019-06-02)
PROC: 027135Z Dilation of Coronary Artery, Two Arteries with Two Drug-eluting Intraluminal Devices, Percutaneous Approach (ICD-10-PCS; 2019-06-02)
DX: I25.10 Atherosclerotic heart disease of native coronary artery without angina pectoris (principal); I12.9 Hypertensive chronic kidney disease with stage 1 through stage 4 chronic kidney disease, or unspecified chronic kidney disease; E11.22 Type 2 diabetes mellitus with diabetic chronic kidney disease; N18.9 Chronic kidney disease, unspecified; E03.9 Hypothyroidism, unspecified; F32.9 Major depressive disorder, single episode, unspecified; R42 Dizziness and giddiness; E78.2 Mixed hyperlipidemia; F03.91 Unspecified dementia, unspecified severity, with behavioral disturbance; F05 Delirium due to known physiological condition; E66.9 Obesity, unspecified; Z68.36 Body mass index [BMI] 36.0-36.9, adult; Z86.73 Personal history of transient ischemic attack (TIA), and cerebral infarction without residual deficits; Z79.02 Long term (current) use of antithrombotics/antiplatelets; Z79.82 Long term (current) use of aspirin; Z79.899 Other long term (current) drug therapy; Z88.8 Allergy status to other drugs, medicaments and biological substances
CPT/HCPCS: 92928; 92929; 93005; 93458; 93798; 99152; 99153; C1769; C1887; C9600; C9601; J0461; J1644; J2001; J2250; Q9967

== ENCOUNTER 2019-08-08 19:24 | Emergency (ER) | payer MEDICARE, OTHER ==
[2019-08-08] MEDS ORDERED: Adacel (T-DAP) 0.5 ML SYRINGE ONE (19:48)
--- NOTE | 2019-08-08 20:08 | CT ---
CT head noncontrast HISTORY: Fall. Head injury. COMPARISON: 03/05/2019. FINDINGS: There is no evidence of acute intracranial hemorrhage or infarct. The ventricles appear nor mal in size, shape and position. There is no mass effect or shift of midline structures. Scalp swelling over the frontal midline calvarium, consistent with recent injury. Visualized paranasal sinu ses remain well aerated. IMPRESSION: No acute intracranial abnormalities are demonstrated.
--- NOTE | 2019-08-08 20:13 | CT ---
CT cervical spine noncontrast HISTORY: Fall. Neck injury. FINDINGS: Vertebral body heights and AP alignment are maintained. Mild leftward convex curvature. Mil d osteophytosis throughout the vertebral bodies and facets. No acute fracture or dislocation are apparent. IMPRESSION: No acute osseous abnormalities are demonstrated.
== END 2019-08-08 20:52 | disposition home or self-care (01) ==
LOC: ERS 19:24
DX: S01.01XA Laceration without foreign body of scalp, initial encounter (principal); E03.9 Hypothyroidism, unspecified; I10 Essential (primary) hypertension; F41.9 Anxiety disorder, unspecified; F32.9 Major depressive disorder, single episode, unspecified; Z79.899 Other long term (current) drug therapy; Z23 Encounter for immunization; W01.198A Fall on same level from slipping, tripping and stumbling with subsequent striking against other object, initial encounter
CPT/HCPCS: 12001; 70450; 72125; 90471; 90715

== ENCOUNTER 2020-05-22 13:47 | Emergency (ER) | payer MEDICARE, OTHER ==
[2020-05-22 14:34] LABS: #Basophils 0.1 thou/uL (0.0-0.2); #Eosinphils 0.4 thou/uL (0.0-0.7); #Lymphocytes 2.8 thou/uL (1.20-3.40); #Monocytes 0.8 thou/uL (0.11-0.59); #Neutrophils 4.4 thou/uL (1.40-6.50); %Basophils 0.9 % (0.0-1.0); %Eosinophils 4.5 % (0.0-10.0); %Lymphocytes 32.9 % (21.0-51.0); %Monocytes 9.4 % (0.0-10.0); %Neutrophils 52.3 % (42.0-75.0); Hemoglobin 12.9 g/dL (12.0-16.0); Mean Corpuscular HGB CONC 30.7 g/dL (32.0-36.0); Mean Corpuscular Hemoglobin 25.7 pg (27.0-31.0); Mean Corpuscular Volume 83.7 fL (78.0-98.0); Mean Platelet Volume 8.7 fL (7.4-10.4); Platelet Count 231 thou/uL (130-400); RBC Distribution Width 13.9 % (11.5-14.5); Red Blood Cell (RBC) Count 5.04 mill/uL (4.20-5.40); White Blood Cell (WBC) Count 8.5 thou/uL (4.8-10.8)
[2020-05-22 14:41] LABS: PTT 32.4 sec (22.9-36.1)
[2020-05-22 14:49] LABS: ALT (SGPT) 10 U/L (8-55); AST (SGOT) 15 U/L (5-34); Albumin 4.1 g/dL (3.4-4.8); Alkaline Phosphatase 85 U/L (40-110); Anion Gap 17 mmol/L (10-20); BUN (Urea Nitrogen) 26 mg/dL (9.8-20.1); Bilirubin, Total 0.5 mg/dL (0.2-1.2); Calc. Creatinine Clearance 0 mL/min (70-130); Calcium 9.4 mg/dL (7.8-10.44); Carbon Dioxide 23 mmol/L (23-31); Chloride 103 mmol/L (98-107); Estimated GFR-MDRD 31; Globulin 3.6 g/dL (2.4-3.5); Glucose 117 mg/dL (83-110); Potassium 4.8 mmol/L (3.5-5.1); Protein, Total 7.7 g/dL (6.0-8.3); Sodium 138 mmol/L (136-145)
[2020-05-22] MEDS ORDERED: diphenhydrAMINE 50 MG/ML VIAL ONE (15:01)
[2020-05-22] MEDS ORDERED: Acetaminophen 500 MG TAB ONE (15:01)
[2020-05-22] MEDS ORDERED: Metoclopramide HCl 10 MG/2 ML VIAL ONE ×2 (15:01→15:03)
[2020-05-22] MEDS ORDERED: Metoclopramide 10 MG/10 ML UDCUP ONE (15:03)
--- NOTE | 2020-05-22 17:21 | CT ---
NONCONTRAST CT HEAD: 05/22/20 HISTORY: Patient fell one week ago. Now complains of worst headache ever. COMPARISON: 08/08/19. FINDINGS: There is no evidence of an intraparenchymal or extra-axial hemorrhage. No acute infarction, mass effe ct, or midline shift is identified. Mild cerebral volume loss is present. The ventricular system is n ormal in size, shape and position. No depressed calvarial fracture is seen. The visualized paranasal sinuses and mastoid air cells are c lear. CT head is stable compared to prior study. IMPRESSION: No acute intracranial abnormality is demonstrated. POS: [facility]
--- NOTE | 2020-05-22 17:24 | CT ---
NONCONTRAST CT CERVICAL SPINE: 05/22/20 HISTORY: Patient fell one week ago and now has worst headache ever. COMPARISON: 08/08/19. TECHNIQUE: Contiguous axial CT images are obtained through the cervical spine from the skull base to the T1-2 le alvin. Sagittal and coronal reformatted images are provided. FINDINGS: Scattered mild degenerative changes are again seen in the cervical spine. No fracture or subluxation is seen. Prevertebral soft tissues are within normal limits. Vascular calcifications are again seen in the carotid arteries. Calcifications are seen in the region of the palatine tonsils bilaterally. Limited visualized lung apices are clear. IMPRESSION: No acute findings involving the cervical spine. POS: [facility]
== END 2020-05-22 17:17 | disposition home or self-care (01) ==
LOC: ERS 13:47
DX: R51 Headache (principal); M54.2 Cervicalgia; I12.9 Hypertensive chronic kidney disease with stage 1 through stage 4 chronic kidney disease, or unspecified chronic kidney disease; N18.9 Chronic kidney disease, unspecified; E03.9 Hypothyroidism, unspecified; F41.9 Anxiety disorder, unspecified; F32.9 Major depressive disorder, single episode, unspecified; Z79.899 Other long term (current) drug therapy; Z79.82 Long term (current) use of aspirin
CPT/HCPCS: 70450; 72125; 80053; 85025; 85610; 85652; 85730; 96365; 96375; J1200; J2765

== ENCOUNTER 2020-06-22 09:43 | Outpatient (CLI) | payer MEDICARE, OTHER ==
--- NOTE | 2020-06-22 10:11 | RAD ---
2 views chest: 06/22/2020 COMPARISON: 02/16/2018 HISTORY: Shortness of breath FINDINGS:Stable prominence of the cardiac silhouette. Mild increased linear interstitial density with pulmonary hyperinflation on the lateral view. Multilevel degenerative change within the thoracic spine. No pneumothorax or pleural fluid. No focal consolidation or alveolar edema. IMPRESSION: Stable appearance of the chest as described above.
== END 2020-06-22 09:44 | disposition home or self-care (01) ==
LOC: BICRAD 09:43
PROVIDERS: ATTEND Internal Medicine Critical Care Medicine
DX: R06.00 Dyspnea, unspecified (principal)
CPT/HCPCS: 71046

== ENCOUNTER 2020-10-26 07:40 | Outpatient (CLI) | payer MEDICARE, OTHER ==
--- NOTE | 2020-10-26 08:26 | ULT ---
Ultrasound pelvis: 10/26/2020 HISTORY: 84-year-old female for follow-up of left ovarian cyst. TECHNIQUE: Transabdominal transducer used to evaluate intrapelvic contents with grayscale, color-flow, and spect ral analysis. COMPARISON: Pelvic ultrasound of 02/17/2018 FINDINGS: Uterus and right ovary are surgically absent by history. No evidence of large amounts of free fluid in the pelvic cavity. The previously demonstrated approximately 3 x 2.6 x 2.9 cm left ovarian cyst has grown to current dim ensions of approximately 4.5 x 5 x 5.5 cm. Its margins are irregular. There is solid tissue adjacent to it, presumably representing ovarian tissue, which demonstrates blood flow by Doppler. The margins of the ovary are difficult to assess, but the left ovary, including this cyst, measures approximately 6.8 x 5.8 x 7.2 cm. IMPRESSION: Interval growth of left ovarian cyst, currently 5.5 cm.
== END 2020-10-26 07:41 | disposition home or self-care (01) ==
LOC: BICULT 07:40
PROVIDERS: ATTEND Family Medicine
DX: N83.202 Unspecified ovarian cyst, left side (principal)
CPT/HCPCS: 76856; 93976

== ENCOUNTER 2021-01-25 09:24 | Outpatient (CLI) | payer MEDICARE, OTHER | END 2021-01-25 09:25 | disposition home or self-care (01) | LOC: BICRAD 09:24 | PROVIDERS: ATTEND Internal Medicine Critical Care Medicine | DX: R06.00 Dyspnea, unspecified (principal) | CPT/HCPCS: 71046 ==

== ENCOUNTER 2021-01-25 14:18 | Outpatient (CLI) | payer MEDICARE, OTHER | END 2021-01-25 14:19 | disposition home or self-care (01) | LOC: BICMAMMO 14:18 | PROVIDERS: ATTEND Family Medicine | DX: Z12.31 Encounter for screening mammogram for malignant neoplasm of breast (principal); R06.00 Dyspnea, unspecified; Z91.89 Other specified personal risk factors, not elsewhere classified | CPT/HCPCS: 77063; 77067 ==

== ENCOUNTER 2022-04-24 10:56 | Outpatient (CLI) | payer MEDICARE, OTHER | END 2022-04-24 10:57 | disposition home or self-care (01) | LOC: BICMAMMO 10:56 | PROVIDERS: ATTEND Internal Medicine | DX: Z12.31 Encounter for screening mammogram for malignant neoplasm of breast (principal); Z91.89 Other specified personal risk factors, not elsewhere classified; Z80.3 Family history of malignant neoplasm of breast | CPT/HCPCS: 77063; 77067 ==

== ENCOUNTER 2023-06-05 10:43 | Emergency (ER) | payer MEDICARE, OTHER ==
[2023-06-05 12:25] LABS: #Basophils 0.1 thou/uL (0.0-0.2); #Eosinphils 0.2 thou/uL (0.0-0.7); #Monocytes 1.1 thou/uL (0.11-0.59); #Neutrophils 3.8 thou/uL (1.40-6.50); %Basophils 0.6 % (0.0-1.0); %Eosinophils 2.7 % (0.0-10.0); %Lymphocytes 38.6 % (21.0-51.0); %Monocytes 12.7 % (0.0-10.0); Hematocrit 36.1 % (36.0-47.0); Hemoglobin 11.2 g/dL (12.0-16.0); Mean Corpuscular Hemoglobin 27.8 pg (27.0-31.0); Mean Corpuscular Volume 89.6 fl (78.0-98.0); Mean Platelet Volume 11.3 fL (7.4-10.4); Platelet Count 179 10x3/uL (130-400); RBC Distribution Width 13.9 % (11.5-14.5); Red Blood Cell (RBC) Count 4.03 mill/uL (4.20-5.40); White Blood Cell (WBC) Count 8.3 10x3/uL (4.8-10.8)
[2023-06-05 12:39] LABS: Bacteria/HPF 1+ HPF (None Seen); Bilirubin Negative (Negative); Blood, Urine Negative (Negative); CAUTI Indications for Culture Dysuria,urgency,freq; Clarity Turbid (Clear); Glucose, Urine (Dipstick) Normal (Negative); Ketone, Urine Negative (Negative); Leukocyte 250 Leu/uL (Negative); Nitrite Negative (Negative); Protein, Urine (Dipstick) Negative (Neg-Trace); RBC/HPF 0-3 HPF (0-3); Specific Gravity, Urine 1.006 (1.002-1.036); Squamous Epithelial 0-3 HPF (0-3); Urobilinogen Normal mg/dL (Less than 2)
[2023-06-05 12:40] LABS: Urine Culture Reflex No No
[2023-06-05 12:55] LABS: ALT (SGPT) 10 U/L (8-55); AST (SGOT) 15 U/L (5-34); Albumin 3.5 g/dL (3.4-4.8); Alkaline Phosphatase 80 U/L (40-110); Anion Gap 19 mmol/L (10-20); BUN (Urea Nitrogen) 38 mg/dL (9.8-20.1); Bilirubin, Total 0.4 mg/dL (0.2-1.2); CK (CPK) 48 U/L (29-168); Calc. Creatinine Clearance 0 mL/min (70-130); Calcium 8.4 mg/dL (7.8-10.44); Carbon Dioxide 24 mmol/L (23-31); Chloride 101 mmol/L (98-107); Estimated GFR 22; Glucose 117 mg/dL (83-110); Lipase 35 U/L (8-78); Magnesium 1.8 mg/dL (1.6-2.6); Potassium 3.6 mmol/L (3.5-5.1); Protein, Total 6.5 g/dL (5.8-8.1); Sodium 140 mmol/L (136-145)
[2023-06-05 12:58] LABS: Troponin I Less than 0.010 ng/mL (< 0.028)
[2023-06-05] MEDS ORDERED: cefTRIAXone (ROCEPHIN) 2 GM VIAL ONE (15:22)
== END 2023-06-05 17:43 ==
LOC: ERS 10:43
DX: N39.0 Urinary tract infection, site not specified (principal); I12.9 Hypertensive chronic kidney disease with stage 1 through stage 4 chronic kidney disease, or unspecified chronic kidney disease; N18.9 Chronic kidney disease, unspecified; N17.9 Acute kidney failure, unspecified; E03.9 Hypothyroidism, unspecified
CPT/HCPCS: 36415; 51701; 70450; 71045; 72125; 74176; 80053; 81001; 82550; 83605; 83690; 83735; 83880; 84484; 85025; 87040; 87077; 87086; 87186; 93005; 94760; 96361; 96365; J0696

== ENCOUNTER 2023-06-21 17:00 | Outpatient (CLI) | payer MEDICARE, OTHER | END 2023-06-21 17:01 | disposition home or self-care (01) | LOC: SLEEPLAB 17:00 | PROVIDERS: ATTEND Internal Medicine | DX: G47.33 Obstructive sleep apnea (adult) (pediatric) (principal); F32.A Depression, unspecified; R06.83 Snoring; R51.9 Headache, unspecified; I50.9 Heart failure, unspecified; D64.9 Anemia, unspecified; N18.30 Chronic kidney disease, stage 3 unspecified; N39.46 Mixed incontinence; Z87.440 Personal history of urinary (tract) infections; E87.5 Hyperkalemia | CPT/HCPCS: 36415; 80048; 81001; 85025; 87086; 95800 ==

== ENCOUNTER 2023-07-09 21:47 | Emergency (ER) | payer MEDICARE, OTHER ==
[2023-07-09 22:44] LABS: #Eosinphils 0.5 thou/uL (0.0-0.7); #Monocytes 0.9 thou/uL (0.11-0.59); #Neutrophils 4.3 thou/uL (1.40-6.50); %Basophils 0.4 % (0.0-1.0); %Eosinophils 5.3 % (0.0-10.0); %Monocytes 10.5 % (0.0-10.0); %Neutrophils 50.3 % (42.0-75.0); Hematocrit 34.2 % (36.0-47.0); Hemoglobin 10.8 g/dL (12.0-16.0); Mean Corpuscular HGB CONC 31.6 g/dL (32.0-36.0); Mean Corpuscular Hemoglobin 27.4 pg (27.0-31.0); Mean Corpuscular Volume 86.8 fl (78.0-98.0); Mean Platelet Volume 10.8 fL (7.4-10.4); Platelet Count 172 10x3/uL (130-400); Red Blood Cell (RBC) Count 3.94 mill/uL (4.20-5.40); White Blood Cell (WBC) Count 8.5 10x3/uL (4.8-10.8)
[2023-07-09] MEDS ORDERED: Furosemide 20 MG/2 ML VIAL ONE (22:52)
[2023-07-09] MEDS ORDERED: Furosemide 40 MG/4 ML VIAL ONE (22:52)
[2023-07-09 23:13] LABS: ALT (SGPT) 13 U/L (8-55); AST (SGOT) 17 U/L (5-34); Albumin 3.7 g/dL (3.4-4.8); Alkaline Phosphatase 61 U/L (40-110); Anion Gap 12 mmol/L (10-20); BUN (Urea Nitrogen) 23 mg/dL (9.8-20.1); Bilirubin, Total 0.3 mg/dL (0.2-1.2); Calc. Creatinine Clearance 0 mL/min (70-130); Calcium 8.8 mg/dL (7.8-10.44); Carbon Dioxide 24 mmol/L (23-31); Chloride 105 mmol/L (98-107); Estimated GFR 33; Globulin 2.3 g/dL (2.4-3.5); Glucose 104 mg/dL (83-110); Potassium 5.3 mmol/L (3.5-5.1); Sodium 136 mmol/L (136-145)
[2023-07-09 23:18] LABS: Troponin I Less than 0.010 ng/mL (< 0.028)
== END 2023-07-09 23:45 | disposition home or self-care (01) ==
LOC: ERS 21:47
DX: I13.0 Hypertensive heart and chronic kidney disease with heart failure and stage 1 through stage 4 chronic kidney disease, or unspecified chronic kidney disease (principal); N18.4 Chronic kidney disease, stage 4 (severe); N18.30 Chronic kidney disease, stage 3 unspecified; I50.9 Heart failure, unspecified; E87.5 Hyperkalemia; E03.9 Hypothyroidism, unspecified; Z95.5 Presence of coronary angioplasty implant and graft; Z79.01 Long term (current) use of anticoagulants; Z79.899 Other long term (current) drug therapy
CPT/HCPCS: 36415; 71045; 80053; 83880; 84484; 85025; 93005; 96374; J1940

== ENCOUNTER 2024-01-24 20:21 | Emergency (ER) | payer MEDICARE, OTHER ==
[2024-01-24 21:13] LABS: #Basophils Less than 0.03 10x3/uL (0.0-0.2); %Basophils 0.3 % (0.0-1.0); %Eosinophils 2.1 % (0.0-10.0); %Monocytes 10.5 % (0.0-10.0); Hematocrit 39.8 % (36.0-47.0); Hemoglobin 12.3 g/dL (12.0-16.0); Mean Corpuscular HGB CONC 30.9 g/dL (32.0-36.0); Mean Corpuscular Hemoglobin 25.4 pg (27.0-31.0); Mean Corpuscular Volume 82.2 fL (78.0-98.0); Mean Platelet Volume 10.5 fL (7.4-10.4); Platelet Count 201 10x3/uL (130-400); RBC Distribution Width 14.9 % (11.5-14.5); Red Blood Cell (RBC) Count 4.84 mill/uL (4.20-5.40)
[2024-01-24 21:36] LABS: ALT (SGPT) 34 U/L (8-55); AST (SGOT) 75 U/L (5-34); Albumin 3.3 g/dL (3.4-4.8); Alkaline Phosphatase 91 U/L (40-110); Anion Gap 16 mmol/L (10-20); BUN (Urea Nitrogen) 18 mg/dL (9.8-20.1); Bilirubin, Total 0.7 mg/dL (0.2-1.2); Calc. Creatinine Clearance 0 mL/min (70-130); Carbon Dioxide 23 mmol/L (23-31); Chloride 105 mmol/L (98-107); Estimated GFR 37; Globulin 3.4 g/dL (2.4-3.5); Glucose 104 mg/dL (83-110); Lipase 19 U/L (8-78); Potassium 4.8 mmol/L (3.5-5.1); Protein, Total 6.7 g/dL (5.8-8.1); Sodium 139 mmol/L (136-145)
[2024-01-24 21:36] LABS: Troponin I Less than 0.010 ng/mL (< 0.028)
[2024-01-24] MEDS ORDERED: Dicyclomine 20 MG/2 ML VIAL ONE (21:36)
[2024-01-24] MEDS ORDERED: Lidocaine 2% Viscous 10 mL, Alum & Magn 30 mL SSW SCH (21:45)
[2024-01-24 22:45] LABS: Bacteria/HPF 4+ HPF (None Seen); Bilirubin Negative (Negative); Blood, Urine Negative (Negative); CAUTI Indications for Culture Dysuria,urgency,freq; Clarity Clear (Clear); Glucose, Urine (Dipstick) Normal (Negative); Ketone, Urine Negative (Negative); Leukocyte 250 Leu/uL (Negative); Nitrite Negative (Negative); Protein, Urine (Dipstick) Negative (Neg-Trace); RBC/HPF 0-3 HPF (0-3); Specific Gravity, Urine 1.011 (1.002-1.036); Urobilinogen Normal mg/dL (Less than 2); pH, Urine 6.5 (5.0-9.0)
[2024-01-24 22:46] LABS: Urine Culture Reflex No No
[2024-01-25] MEDS ORDERED: Ketorolac Tromethamine 30 MG (1 mL) VIAL ONE (00:18)
== END 2024-01-25 01:30 | disposition home or self-care (01) ==
LOC: ERS 20:21
DX: N39.0 Urinary tract infection, site not specified (principal); I13.0 Hypertensive heart and chronic kidney disease with heart failure and stage 1 through stage 4 chronic kidney disease, or unspecified chronic kidney disease; I50.9 Heart failure, unspecified; N18.30 Chronic kidney disease, stage 3 unspecified
CPT/HCPCS: 36415; 71045; 74177; 80053; 81001; 83690; 84484; 85025; 93005; 96372; 96374; J1885

== ENCOUNTER 2024-09-15 13:41 | Emergency (ER) | payer MEDICARE, OTHER ==
[~2024-09-15 13:41] MED LIST: Iopamidol-370 76% 500 ML MDV (1 ML CHARGE) ONE
[2024-09-15 14:34] LABS: #Basophils 0.04 10x3/uL (0.0-0.2); %Basophils 0.3 % (0.0-1.0); %Eosinophils 0.3 % (0.0-10.0); %Lymphocytes 13.5 % (21.0-51.0); %Monocytes 10.7 % (0.0-10.0); %Neutrophils 74.9 % (42.0-75.0); Hematocrit 38.5 % (36.0-47.0); Hemoglobin 12.2 g/dL (12.0-16.0); Mean Corpuscular HGB CONC 31.7 g/dL (32.0-36.0); Mean Corpuscular Hemoglobin 27.3 pg (27.0-31.0); Mean Corpuscular Volume 86.1 fL (78.0-98.0); Mean Platelet Volume 10.5 fL (7.4-10.4); Platelet Count 224 10x3/uL (130-400); RBC Distribution Width 14.6 % (11.5-14.5); Red Blood Cell (RBC) Count 4.47 mill/uL (4.20-5.40)
[2024-09-15 14:52] LABS: ALT (SGPT) 7 U/L (8-55); AST (SGOT) 14 U/L (5-34); Albumin 3.2 g/dL (3.4-4.8); Alkaline Phosphatase 70 U/L (40-110); Anion Gap 16 mmol/L (10-20); BUN (Urea Nitrogen) 16 mg/dL (9.8-20.1); Bilirubin, Total 0.7 mg/dL (0.2-1.2); Calc. Creatinine Clearance 0 mL/min (70-130); Calcium 8.8 mg/dL (7.8-10.44); Carbon Dioxide 23 mmol/L (23-31); Chloride 104 mmol/L (98-107); Estimated GFR 41; Globulin 4.1 g/dL (2.4-3.5); Glucose 148 mg/dL (83-110); Lipase 15 U/L (8-78); Potassium 4.7 mmol/L (3.5-5.1); Protein, Total 7.3 g/dL (5.8-8.1); Sodium 138 mmol/L (136-145)
[2024-09-15 14:57] LABS: Troponin I 0.011 ng/mL (< 0.028)
[2024-09-15 16:48] LABS: Bilirubin Negative (Negative); Blood, Urine Negative (Negative); CAUTI Indications for Culture < 2yrs of age; Clarity Clear (Clear); Glucose, Urine (Dipstick) Normal (Negative); Ketone, Urine Negative (Negative); Leukocyte 25 Leu/uL (Negative); Nitrite 1+ (Negative); Protein, Urine (Dipstick) Negative (Neg-Trace); Urobilinogen Normal mg/dL (Less than 2); WBC/HPF 21-50 HPF (0-3); Yeast-Budding 1+ HPF (None Seen); pH, Urine 6.5 (5.0-9.0)
[2024-09-15 16:49] LABS: Bacteria/HPF 1+ HPF (None Seen); Specific Gravity, Urine Greater than 1.060 (1.002-1.036)
[2024-09-15 16:50] LABS: Urine Culture Reflex Yes Yes
[2024-09-15] MEDS ORDERED: HYDROcodone/Acetaminophen 5/325 mg Tablet ONE (17:38)
== END 2024-09-15 18:00 | disposition home or self-care (01) ==
LOC: ERS 13:41
DX: K57.30 Diverticulosis of large intestine without perforation or abscess without bleeding (principal); N39.0 Urinary tract infection, site not specified; I25.10 Atherosclerotic heart disease of native coronary artery without angina pectoris; I13.0 Hypertensive heart and chronic kidney disease with heart failure and stage 1 through stage 4 chronic kidney disease, or unspecified chronic kidney disease; N18.30 Chronic kidney disease, stage 3 unspecified; I50.9 Heart failure, unspecified; E03.9 Hypothyroidism, unspecified; Z79.82 Long term (current) use of aspirin; Z79.899 Other long term (current) drug therapy; Z95.5 Presence of coronary angioplasty implant and graft
CPT/HCPCS: 74177; 80053; 81001; 83690; 84484; 85025; 87077; 87086; 87186; 93005; Q9967; 36415

== ENCOUNTER 2024-09-30 10:27 | Outpatient (CLI) | payer MEDICARE, OTHER ==
[~2024-09-30 10:27] MED LIST changes: +Iopamidol 370 76% 100 ML VIAL ONE; -Iopamidol-370 76% 500 ML MDV (1 ML CHARGE) ONE; +Magnevist 469MG/ML 20 ML VIAL ONE
== END 2024-09-30 10:28 | disposition home or self-care (01) ==
LOC: CT 10:27
PROVIDERS: ATTEND Family Medicine
DX: R41.82 Altered mental status, unspecified (principal); R90.82 White matter disease, unspecified; I73.9 Peripheral vascular disease, unspecified
CPT/HCPCS: 36415; 70470; 70553; 76376; 82565